=== PATIENT | female | born 1985 | race Asian ===

== ENCOUNTER 2018-07-09 15:24 | Emergency (ER) | payer BC ==
[2018-07-09] MEDS ORDERED: diphenhydrAMINE 25 MG CAP PO ONE (15:42)
[2018-07-09] MEDS ORDERED: FAMOTIDINE 20 MG TAB PO ONE (15:42)
[2018-07-09] MEDS ORDERED: predniSONE 20 MG TAB PO ONE (15:42)
[2018-07-09] MEDS ORDERED: diphenhydrAMINE 50 MG CAP PO ONE (15:43)
--- NOTE | 2018-07-09 15:56 | EDPHY ---
H & P Stated Complaint: lip swelling/itching all over body/chest tightness no known allergies Time Seen by Provider: 07/09/18 15:36 HPI/ROS: CHIEF COMPLAINT: Rash, lip swelling HISTORY OF PRESENT ILLNESS: The patient presents to the ED with complaints of rash and lip swelling. Her symptoms began at 9:00 a.m. This morning. They were unprovoked. The patient did developed some chest pain after going to see a nurse at work. She was told to come to the emergency department. She has not taken any [id number] medications. The patient takes no regular medications. She denies significant past medical history. She denies prior history of allergic reaction. She denies any obvious precipitant to today's rash. REVIEW OF SYSTEMS: A comprehensive 10 point review of systems is otherwise negative aside from elements mentioned in the history of present illness. Source: Patient Exam Limitations: No limitations - Personal History LMP (Females 10-55): Extended Cycle BCP/Inj Current Tetanus Diphtheria and Acellular Pertussis (TDAP): Unsure - Medical/Surgical History Hx Asthma: No Hx Chronic Respiratory Disease: No Hx Diabetes: No Hx Cardiac Disease: No Hx Renal Disease: No Hx Cirrhosis: No Hx Alcoholism: No Hx HIV/AIDS: No Hx Splenectomy or Spleen Trauma: No Other PMH: denies - Social History Smoking Status: Never smoked - Physical Exam Exam: General Appearance: Alert, no distress Eyes: Pupils equal and round no pallor or injection ENT, Mouth: Scant lip swelling, moist mucous membranes Respiratory: There are no retractions, lungs are clear to auscultation Cardiovascular: Regular rate and rhythm Gastrointestinal: Abdomen is soft and nontender, no masses, bowel sounds normal Neurological: A&O, normal motor function, normal sensory exam, normal cranial nerves Skin: Subtle urticarial rash noted to the flank and back Musculoskeletal: Neck is supple nontender Extremities: symmetrical, full range of motion Psychiatric: Patient is oriented X 3, there is no agitation Constitutional: Initial Vital Signs Temperature (C) 36.8 C 07/09/18 15:27 Heart Rate 88 07/09/18 15:27 Respiratory Rate 18 07/09/18 15:27 Blood Pressure 116/64 07/09/18 15:27 O2 Sat (%) 96 07/09/18 15:27 O2 Delivery Mode Room Air Allergies/Adverse Reactions: No Known Allergies Allergy (Unverified 07/09/18 15:26) Home Medications: Medication Instructions Recorded Nexplanon 07/09/18 Medical Decision Making - Diagnostics EKG Interpretation: EKG: Complete interpretation has been separately recorded in the [facility] archive. Summary impression: Sinus rhythm ED Course/Re-evaluation: Patient presents to the ED with a mild urticarial reaction. She was treated with oral Benadryl, Pepcid and prednisone. She did have some mild chest pain which I felt was more likely related to anxiety surrounding her allergic reaction. EKG demonstrated no ischemic changes. Patient was reassessed at 5:00 p.m. And feeling much better. She will be discharged home with instructions to use prednisone for the next 4 days. Benadryl as needed for rash and itching. Differential Diagnosis: Differential diagnosis considered includes hives, anaphylaxis, angioedema, urticaria - Data Points Medications Given: Discontinued Medications Diphenhydramine HCl (Benadryl) 50 mg PO EDNOW ONE Stop: 07/09/18 15:43 Last Admin: 07/09/18 15:45 Dose: 50 mg Famotidine (Pepcid) 40 mg PO EDNOW ONE Stop: 07/09/18 15:43 Last Admin: 07/09/18 15:52 Dose: 40 mg Prednisone (Prednisone) 60 mg PO EDNOW ONE Stop: 07/09/18 15:43 Last Admin: 07/09/18 15:52 Dose: 60 mg Departure - Departure Disposition: Home, Routine, Self-Care Clinical Impression: Urticaria Condition: Good Instructions: Urticaria (ED) Additional Instructions: 1. Take prednisone as directed for next 4 days. 2. Benadryl as needed every 6 hr for itching. 3. Return to the ED for worsening symptoms or other concerns. 4. You have been given a prescription for an epinephrine pen in the event you had a severe allergic reaction. 5. You have been given the contact number of a local allergy document specialist if you continue to have symptoms of hives. Referrals: Michell Carroll MD [[facility] [place] Primary Care Provider] - As per Instructions
--- NOTE | 2018-07-09 15:57 | CPEKG ---
Test Reason : OPEN Blood Pressure : / mmHG Vent. Rate : 087 BPM Atrial Rate : 087 BPM P-R Int : 142 ms QRS Dur : 097 ms QT Int : 402 ms P-R-T Axes : 026 064 042 degrees QTc Int : 484 ms Sinus rhythm Confirmed by Darin Erazo ([id number]) on 07/09/2018 3:56:26 PM Referred By: Darin Erazo Confirmed By:Darin Erazo
[2018-07-09 17:26] VITALS: BP 101/64
== END 2018-07-09 17:34 | disposition home or self-care (01) ==
DX: L50.9 Urticaria, unspecified (principal); M79.89 Other specified soft tissue disorders
CPT/HCPCS: J7512